=== PATIENT | male | born 1950 | race Caucasian/White ===

== ENCOUNTER 2019-12-19 08:49 | Day surgery (SDC) | payer MEDICARE, BC, SELFPAY ==
[2019-12-19 09:11] VITALS: BMI 28.2
[2019-12-19 09:19] VITALS: BP 145/87; PULSE 124; RESP 18; TEMP 36.5; O2SAT 95
--- NOTE | 2019-12-19 09:24 | ECG_ITS ---
Measurements Intervals [place] Rate: 104 P: 64 WI: 163 QRS: 83 QRSD: 147 T: -2 QT: 359 QTc: 474 SINUS TACHYCARDIA POSSIBLE LEFT ATRIAL ENLARGEMENT [-0.1mV P WAVE IN V1/V2] RIGHT BUNDLE BRANCH BLOCK [120+ ms QRS DURATION, UPRIGHT V1, 40+ ms S IN I/aVL/V4/V5/V6] No previous ECG available for comparison Electronically Signed On 12-19-2019 20:19:07 CDT by Zach Aguiar M.D. [email or web address]
--- NOTE | 2019-12-19 10:06 | ANES.PREANE2 ---
Pre-Anesthetic Assessment Pre-Anesthetic Assessment: Height/Weight: Height 1.83 m Weight 94.347 kg Temp Pulse Resp BP Pulse Ox 97.7 F 124 H 18 145/87 95 12/19/19 09:19 12/19/19 09:19 12/19/19 09:19 12/19/19 09:19 12/19/19 09:19 Preop Diagnosis: Symptomatic hemorrhoids Proposed Procedure: Operation Date: 12/19/19 10:40 Proposed Procedures p Exam Under Anesthesia 60147/09195/K64.9(Not Applicable) - Clyde Herrera MD Last intake: Intake Last Liquid Date 12/18/19 Last Liquid Time 19:00 Exam: Pre-Anes Outpt Exam: alert, oriented x 3, clear to auscultation bilaterally and regular rate & rhythm Airway: Submandibular: WNL Cervical ROM: WNL MP: 2 CV/HEM: Comments: 2 blocks/2FOS with angina/MARTIN Musc/skel: Musc/skel: Lower Back Pain Comments: nonradiating Anesthetic Plan: ASA status: 2 Anesthesia: MAC PFSH Anesthesia PFSH: Social History Smoking and tobacco status: never smoked Second hand smoke exposure: No Alcohol intake: never Adopted: No Caregiver/support person: No Lives independently: No Housing: House Current occupational status: retired Current occupational exposures/hazards: No Pets and animals: No History of recent travel: No Sexually active: No Current gender identity: Male Delilah/Zoroastrianism: Rastafarian Special delilah needs: No Agree to transfusion: No Financial difficulty paying for basics: Decline to Answer Data Anesthesia Cardiac Studies: No Data to Display
[2019-12-19] MEDS: sodium chloride 0.9% 1,000 ML 30 ML IV (11:04)
--- NOTE | 2019-12-19 11:28 | W.PM.OPSUD ---
Surgery/Procedure H&P Update DATE OF PROCEDURE: December 19, 2019 DATE H&P PERFORMED: 12/18/19 H&P UPDATE INFORMATION: I have reviewed H&P completed within last 30 days, I have examined patient prior to procedure and No changes to prior documentation PREOP DIAGNOSIS: Symptomatic hemorrhoids PRIMARY INDICATION FOR PROCEDURE: The same PLANNED PROCEDURE: Operation Date: 12/19/19 10:40 Proposed Procedures p Exam Under Anesthesia 27102/52858/K64.9(Not Applicable) - Clyde Herrera MD
[2019-12-19] MEDS: metroNIDAZOLE IV 500 MG/100 ML PREMIX 100 MG IV (11:36)
[2019-12-19] MEDS: ciprofloxacin 400 MG/200 ML PREMIX 200 MG IV (11:42)
[2019-12-19 12:22] VITALS: BP 68/50; PULSE 75; RESP 18; TEMP 36.8; O2SAT 96
--- NOTE | 2019-12-19 12:22 | P.OP_ITS ---
Operative Report Date of procedure: December 19, 2019 Pre-op Diagnosis: Symptomatic hemorrhoids Post-op diagnosis: other (Left lower lateral hemorrhoid and right upper lateral internal hemorrhoid) Procedure Done: Examination under anesthesia and hemorrhoidectomy Bilateral pudendal nerve Specimens removed/disposition: Left lower lateral and right upper lateral hemorrhoid Surgeon: Clyde Herrera Helper Animal Laboratory: [facility] Circulating nurse Pao Anesthesia: General ([facility] SENIOR BIOSTATISTICIAN Nichole) Estimated blood loss (mL): 5 Condition: stable Disposition: same day Brief History: This is a pleasant 69 years old gentleman presenting to my office with history of bleeding per rectum and prolapsed hemorrhoids, that he would push them back himself. Patient has been suffering with that on daily life basis which is interfering with his daily life activity After thorough history physical examination and reviewing the chart I did automobile travel club counselor the patient for exam under anesthesia with possible hemorrhoidectomy. Informed consent per chart Procedure: Patient was identified in the holding area and was taken back to the operating room, which was first placed in supine position got intubated by anesthesia, prophylactic IV antibiotics were given per protocol,Time-out was done verifying the patient's name/date of /planned procedure and destination after the procedure, all were in agreement. Patient was placed in left lateral position were all pressure points were padded, digital rectal examination was done shows no masses or blood,found to have induration at the right lower lateral hemorrhoid, examination was done before insertion of the Anoscope. At that time after scrubbing. Prep and drape was done thereafter under the usual sterile technique,started by pudendal nerve block bilaterally,injecting 15 mL of Exparel on each side , guided by the examining finger towards the ischial spine bilaterally, followed by that digital rectal examination showed no masses were appreciated or bleeding. Anoscope was then introduced I was able to identify the internal/external right lower lateral , I placed a wet 4 x 4 inside the anal canal to prevent stools from encroaching on the wound site, that was taken out at the end of the procedure. I did apply a hemostat at the origin of the hemorrhoidal tissue, onto the left lower lateral hemorrhoid III,using harmonic scalpel device for dissection safeguarding the external anal sphincter after that I was able to deliver the specimen to the circulating nurse hemostasis was achieved and running 2-0 chromic catgut suture was applied to approximate the edges of the hemorrhoidectomy site, that was done after thorough irrigation of the wound with warm normal saline, same technique was repeated as I did appreciate a right upper lateral hemorrhoid grade II, excised with the same technique using the harmonic scalpel in a running 2-0 chromic gut got was achieved. At that point after removal of the 4 x 4'sx1, I applied a piece of Xeroform impregnated lidocaine 2% jelly at the site of the wound and a piece of Surgicel both were rolled up as a Cigar like and and 2-0 silk stitch was applied at the end that faces the exit of the anus as it will be easier to pull out later on, followed by 4 x 4 application and ABD .,a surgical pants was then placed to hold the dressing in place. Count was completed at the end of the procedure, patient was then extubated and was taken to the recovery room in stable condition I was present for the whole entire procedure
[2019-12-19 12:30] VITALS: BP 95/52; PULSE 73; RESP 12; O2SAT 98
[2019-12-19 12:35] VITALS: BP 126/89; PULSE 92; RESP 14; TEMP 36.6; O2SAT 95
[2019-12-19 12:50] VITALS: BP 149/106; PULSE 101; RESP 16; TEMP 36.8; O2SAT 95
[2019-12-19] MEDS: HYDROcodone-acetaminophen 5-325 mg Tablet 1 TAB PO (13:10)
[2019-12-19 13:17] VITALS: BP 130/70; PULSE 87; RESP 18; TEMP 36.8; O2SAT 97
== END 2019-12-19 13:25 | disposition home or self-care (01) ==
PROVIDERS: Family Provider Family Medicine; PCP Family Medicine; Visit Provider Surgery
PROC: (CPT 46260; principal; 2019-12-19 10:30)
PROC: (CPT 46260; 2019-12-19 10:30)
DX: K64.8 Other hemorrhoids (principal); E78.5 Hyperlipidemia, unspecified
CPT/HCPCS: 46260; 12345; 88304; 93005; 96365; C9290; J0131; J0744; J2001; J2250; J2704; J3010; J3490; J7030; S0030

== ENCOUNTER → 2022-02-16 07:31 | Outpatient (BNVA) | payer MEDICARE, BC, SELFPAY | PROVIDERS: Family Provider Family Medicine; PCP Family Medicine; Visit Provider Family Medicine | DX: K64.9 Unspecified hemorrhoids (principal); E78.5 Hyperlipidemia, unspecified; I10 Essential (primary) hypertension; R73.03 Prediabetes; K62.5 Hemorrhage of anus and rectum | CPT/HCPCS: 80053; 80061; 83036; 85025 ==

== ENCOUNTER → 2022-08-14 08:10 | Outpatient (BNVA) | payer MEDICARE, BC, SELFPAY | PROVIDERS: Family Provider Family Medicine; PCP Family Medicine; Visit Provider Family Medicine | DX: Z00.00 Encounter for general adult medical examination without abnormal findings (principal); E78.5 Hyperlipidemia, unspecified; R73.03 Prediabetes | CPT/HCPCS: 80053; 80061; 83036; 85025 ==

== ENCOUNTER → 2023-08-16 08:37 | Outpatient (BNVA) | payer MEDICARE, SELFPAY | PROVIDERS: Family Provider Family Medicine; PCP Family Medicine; Visit Provider Family Medicine | DX: Z00.00 Encounter for general adult medical examination without abnormal findings (principal); E78.5 Hyperlipidemia, unspecified | CPT/HCPCS: 80053; 80061; 85025 ==

== ENCOUNTER → 2024-08-29 12:10 | Outpatient (BNVA) | payer MEDICARE, SELFPAY | PROVIDERS: Family Provider Family Medicine; PCP Family Medicine; Visit Provider Family Medicine | DX: Z00.00 Encounter for general adult medical examination without abnormal findings (principal); E78.5 Hyperlipidemia, unspecified; R35.1 Nocturia | CPT/HCPCS: 80053; 80061; 84153 ==

== ENCOUNTER → 2024-10-10 10:40 | Outpatient (BNVA) | payer MEDICARE, SELFPAY | PROVIDERS: Family Provider Family Medicine; PCP Family Medicine; Visit Provider Student in an Organized Health Care Education/Training Program | DX: Z12.11 Encounter for screening for malignant neoplasm of colon (principal) | CPT/HCPCS: 99024; 99204 ==

== ENCOUNTER 2024-11-21 07:23 | Day surgery (SDC) | payer MEDICARE, SELFPAY ==
[2024-11-21 07:43] VITALS: BP 113/80; PULSE 115; RESP 16; TEMP 36.3; O2SAT 97; BMI 28.5
[2024-11-21] MEDS: sodium chloride 0.9% 500 ML 15 ML IV (07:52)
--- NOTE | 2024-11-21 08:05 | ANES.PREANE2 ---
Pre-Anesthetic Assessment Height/Weight: Height 1.83 m Weight 95.254 kg Temp Pulse Resp BP Pulse Ox O2 Del Method 97.3 F L 115 H 16 113/80 97 Room Air 11/21/24 07:43 11/21/24 07:43 11/21/24 07:43 11/21/24 07:43 11/21/24 07:43 11/21/24 07:43 Operation Date: 11/21/24 08:30 Proposed Procedures p Colonoscopy 77361, G0105, Z12.11(Not Applicable) - Deion Ritter MD Familial anesthetic complications: none Was Beta Rufino taken within 24 hours: N/A Was Clonidine taken within 24 hours: N/A Last intake: Intake Last Liquid Date 11/20/24 Last Liquid Time 20:00 Last Solid Date 11/19/24 Last Solid Time 17:30 Social No alcohol and No tobacco Exam alert, oriented x 3, clear to auscultation bilaterally and regular rate & rhythm Airway Submandibular: within normal limits Mallampati: Class II History/ROS No significant history except as noted CV/HEM HLD, reports having abnormal EKG 20 years ago believed it to be a RBBB. >4mets Anesthetic Plan ASA status: 2 Anesthesia: MAC Risk of > 500 ml blood loss (7ml/kg in children): No Medications/Allergies Home Medications ?Medication ?Instructions ?Recorded ?Confirmed ?Last Taken ?Type red yeast rice 600 mg capsule 600 mg PO BID #60 caps 08/25/22 11/21/24 11/20/24 Rx tadalafil 10 mg tablet See Rx Instructions .Route 12/30/23 11/21/24 Unknown Rx .COMPLEX #30 tabs ascorbic acid (vitamin C) 1,000 mg 1,000 mg PO DAILY 11/16/24 11/21/24 11/20/24 History chewable tablet magnesium 250 mg tablet 250 mg PO DAILY 11/16/24 11/21/24 11/20/24 History ondansetron 8 mg disintegrating 8 mg PO Q8H PRN nausea and 11/16/24 11/21/24 Unknown Rx tablet vomiting #3 tabs Allergies Allergy/AdvReac Type Severity Reaction Status Date / Time Penicillins Allergy Severe ALGY-Difficulty Verified 10/10/24 10:44 Breathing atorvastatin (From Lipitor) Allergy Unknown Unknown Verified 10/10/24 10:44 rosuvastatin (From Crestor) Allergy Unknown Unknown Verified 10/10/24 10:44 Sulfa (Sulfonamide Allergy Unknown Unknown Verified 10/10/24 10:44 Antibiotics) Current Medications Generic Name Dose Route Start Last Admin Trade Name Freq PRN Reason Stop Dose Admin Sodium Chloride 500 mls @ 15 mls/hr 11/21/24 07:28 11/21/24 07:52 Sodium Chloride 0.9% IV 11/22/24 07:27 15 mls/hr .Q24H PRN Administration COLONOSCOPY FLUIDS PFSH Anesthesia Medical History Hemorrhoids Rectal bleeding Hyperlipidemia Surgical History Status post hemorrhoidectomy (~11/2019) History of arthroplasty of right knee (~2015) History of arthroplasty of right shoulder History of colonoscopy (~2013) Family History Denies family history of Anesthesia complication Bleeding disorder Social History (Updated 10/10/24 @ 10:[address]) Smoking and tobacco/nicotine status: never used tobacco/nicotine Second hand smoke exposure: No Alcohol intake: never Substance/Drug Use: never Adopted: No Caregiver/support person: No Lives independently: No Housing: House Current occupational status: retired Current occupational exposures/hazards: No Pets and animals: No Sexually active: No Do you think of yourself as: Straight/Heterosexual Current gender identity: Male Delilah/Lutheran: Anabaptism Special delilah needs: No Agree to transfusion: No Data Anesthesia Cardiac Studies: No Data to Display
--- NOTE | 2024-11-21 08:17 | W.PM.OPSUD ---
Surgery/Procedure H&P Update DATE OF PROCEDURE: November 21, 2024 DATE H&P PERFORMED: 11/21/24 H&P UPDATE INFORMATION: I have reviewed H&P completed within last 30 days, I have examined patient prior to procedure and No changes to prior documentation PLANNED PROCEDURE: Operation Date: 11/21/24 08:30 Proposed Procedures p Colonoscopy 66064, G0105, Z12.11(Not Applicable) - Deion Ritter MD
[2024-11-21 08:41] VITALS: BP 106/57; PULSE 85; RESP 18; TEMP 36.6; O2SAT 93
[2024-11-21 08:51] VITALS: BP 105/67; PULSE 88; RESP 18; TEMP 36.4; O2SAT 94
--- NOTE | 2024-11-21 10:34 | ANE.PACU2 ---
Inpatient post-anesthesia follow up: Airway intact: Yes Vital signs: Temperature 97.6 F Pulse Rate 88 Respiratory Rate 18 Blood Pressure 105/67 Pulse Oximetry 94 Oxygen Delivery Me thod Room Air Oxygen Flow Rate Fraction of Inspir ed Oxygen Hydration adequate: Yes Nausea and vomiting: No Pain level: 1 Mental status: Baseline
--- NOTE | 2024-11-21 12:30 | W.PM.OPSFHP ---
Same Day Surgery H&P Indication for Procedure/HPI DATE OF PROCEDURE: November 21, 2024 CHIEF COMPLAINT/INDICATIONFOR SURGICAL PROCEDURE: screening colonoscopy PREOP DIAGNOSIS: screening colonoscopy PLANNED PROCEDURE: Operation Date: 11/21/24 08:30 Proposed Procedures p Colonoscopy 94954, G0105, Z12.11(Not Applicable) - Deion Ritter MD Medications/Allergies* Home Medications ?Medication ?Instructions ?Recorded ?Confirmed ?Type ascorbic acid (vitamin C) 1,000 mg 1,000 mg PO DAILY 11/16/24 11/21/24 History chewable tablet magnesium 250 mg tablet 250 mg PO DAILY 11/16/24 11/21/24 History Allergies/Adverse Reactions Allergy/AdvReac Type Severity Reaction Status Date / Time Penicillins Allergy Severe ALGY-Difficulty Verified 10/10/24 10:44 Breathing atorvastatin (From Lipitor) Allergy Unknown Unknown Verified 10/10/24 10:44 rosuvastatin (From Crestor) Allergy Unknown Unknown Verified 10/10/24 10:44 Sulfa (Sulfonamide Allergy Unknown Unknown Verified 10/10/24 10:44 Antibiotics) Pertinent History/Comorbid Conditions* Medical History (Updated 10/03/24 @ 07:29 by Kervin Flores MD) Hemorrhoids Rectal bleeding Hyperlipidemia Surgical History (Updated 01/01/20 @ 12:06 by Clyde Herrera MD) Status post hemorrhoidectomy (~11/2019) History of arthroplasty of right knee (~2015) History of arthroplasty of right shoulder History of colonoscopy (~2013) Family History (Updated 12/18/19 @ 09:53 by Anna Sheppard RN) Denies family history of Anesthesia complication Bleeding disorder Social History Smoking and tobacco/nicotine status: never used tobacco/nicotine Second hand smoke exposure: No Alcohol intake: never Substance/Drug Use: never Adopted: No Caregiver/support person: No Lives independently: No Housing: House Current occupational status: retired Current occupational exposures/hazards: No Pets and animals: No Sexually active: No Do you think of yourself as: Straight/Heterosexual Current gender identity: Male Delilah/Jain: Yarsani Special delilah needs: No Agree to transfusion: No Pertinent Exam Findings alert, oriented x 3, clear to auscultation bilaterally, regular rate & rhythm and procedure specific exam findings abdomen soft, nt, nd Recommendations Surgery/Procedure today Coding Level of Care Code Acute Code for Chg Fwd
== END 2024-11-21 09:30 | disposition home or self-care (01) ==
PROVIDERS: PCP Family Medicine; Visit Provider Student in an Organized Health Care Education/Training Program
PROC: 0DJD8ZZ Inspection of Lower Intestinal Tract, Via Natural or Artificial Opening Endoscopic (ICD-10-PCS; CPT 45378; principal; 2024-11-21 08:30)
DX: Z12.11 Encounter for screening for malignant neoplasm of colon (principal); K57.30 Diverticulosis of large intestine without perforation or abscess without bleeding; E78.5 Hyperlipidemia, unspecified; Z88.0 Allergy status to penicillin; Z88.8 Allergy status to other drugs, medicaments and biological substances; Z88.2 Allergy status to sulfonamides
CPT/HCPCS: G0121; J2704; J7040

== ENCOUNTER → 2025-03-20 07:34 | Outpatient (BNVA) | payer MEDICARE, SELFPAY | PROVIDERS: PCP Family Medicine; Visit Provider Family Medicine | DX: N18.9 Chronic kidney disease, unspecified (principal); I10 Essential (primary) hypertension; R97.20 Elevated prostate specific antigen [PSA] | CPT/HCPCS: 80053; 80061; 84153; 85025 ==